=== PATIENT | male | born 1935 | race Caucasian/White ===

== ENCOUNTER 2019-01-17 11:26 | Inpatient (IN) | payer MEDICARE ==
--- NOTE | 2019-01-17 12:43 | ED ---
Chest Pain HPI - General Chief Complaint: Chest Pain Stated Complaint: Chest pain Time Seen by Provider: 01/17/19 11:26 Source: patient, family, EMS, RN notes reviewed Mode of arrival: EMS Limitations: no limitations - History of Present Illness Initial Comments: This 83-year-old male with a history of heart disease who is currently an Eliquis who presents from [facility] after presenting there with complaints of the onset of chest pain at around 4 AM this morning. He was treated and evaluated there found be hypomagnesemic pain is gone at this time he was sent for further evaluation by his owner consulting engineer. No complete fevers chills nausea vomiting sweats or other symptoms at this time. MD Complaint: chest pain - Related Data Home Medications Medication Instructions Recorded Confirmed Glimepiride [Amaryl] 2 mg PO BID 06/11/14 10/26/15 Levothyroxine Sodium [Synthroid] 50 mcg PO DAILY 06/11/14 10/26/15 Montelukast Sodium [Singulair] 10 mg PO DAILY 06/11/14 10/26/15 Loratadine [Claritin] 10 mg PO DAILY 10/14/14 10/26/15 Losartan [Cozaar] 50 mg PO DAILY 10/14/14 10/26/15 Aspirin [Adult Low Dose Aspirin EC] 81 mg PO DAILY 10/24/15 10/26/15 Atenolol [Tenormin] 50 mg PO BID 10/24/15 10/26/15 Warfarin Sodium 2.5 mg PO SUTUTHSA 10/24/15 10/26/15 Warfarin [Coumadin] 5 mg PO MOWEFR 10/24/15 10/26/15 Previous Rx's Medication Instructions Recorded Atorvastatin [Lipitor] 80 mg PO DAILY #60 tab 10/18/14 Clopidogrel [Plavix] 75 mg PO DAILY #90 tab 10/18/14 Nitroglycerin Sl Tabs [Nitrostat] 0.4 mg SUBLINGUAL Q5M PRN #25 tab 10/18/14 Atorvastatin [Lipitor] 80 mg PO HS #30 tab 10/27/15 Nitroglycerin Sl Tabs [Nitrostat] 0.4 mg SUBLINGUAL Q5M PRN #25 tab 10/27/15 metFORMIN HCL [Glucophage] 850 mg PO BID #0 10/27/15 Allergies Allergy/AdvReac Type Severity Reaction Status Date / Time cephalexin monohydrate Allergy Anaphylaxis Verified 01/17/19 11:36 [From Keflex] Review of Systems ROS Statement: Those systems with pertinent positive or pertinent negative responses have been documented in the HPI. ROS Other: All systems not noted in ROS Statement are negative. EKG Findings - EKG Results: EKG: interpreted by SIM (EKG rhythm rate is 60 QRS 178 daily since QTC 488/48 this is comparable to the one done at [facility].) Past Medical History Past Medical History: Heart Failure, Diabetes Mellitus, Deep Vein Thrombosis (DVT), Eye Disorder, Hearing Disorder / Deafness, Hyperlipidemia, Hypertension, Sleep Apnea/CPAP/BIPAP, Thyroid Disorder, Vascular Disorder Additional Past Medical History / Comment(s): CATARACT. NOT USING [place] FOR SLEEP APNEA. SHITAL EDEMA IN LEGS, ANKLES. History of Any Multi-Drug Resistant Organisms: None Reported Past Surgical History: Cholecystectomy, Heart Catheterization With Stent, Pacemaker, Tonsillectomy Additional Past Surgical History / Comment(s): STENT X2, 10-26-15 heart cath with stent to the circ, ortega Past Anesthesia/Blood Transfusion Reactions: No Reported Reaction Date of Last Stent Placement:: 10/2014 Type of Cardiac Device: Permanent Pacemaker Device Placement Date:: 05/2014 Past Psychological History: No Psychological Hx Reported Smoking Status: Former smoker Past Alcohol Use History: None Reported Past Drug Use History: None Reported - Past Family History Father Family Medical History: Cancer Mother Family Medical History: Chest Pain / Angina, Congestive Heart Failure (CHF), Diabetes Mellitus, Vascular Disorder Brother(s) Family Medical History: Chest Pain / Angina, Myocardial Infarction ([place]) General Exam - General Exam Comments Initial Comments: This is a well-developed well-nourished awake alert oriented 3 male Limitations: no limitations General appearance: alert, in no apparent distress Head exam: Present: atraumatic, normocephalic, normal inspection Eye exam: Present: normal appearance, PERRL, EOMI. Absent: scleral icterus, conjunctival injection, periorbital swelling ENT exam: Present: normal exam, mucous membranes moist Neck exam: Present: normal inspection. Absent: tenderness, meningismus, lymphadenopathy Respiratory exam: Present: normal lung sounds bilaterally. Absent: respiratory distress, wheezes, rales, rhonchi, stridor Cardiovascular Exam: Present: regular rate, normal rhythm, normal heart sounds. Absent: systolic murmur, diastolic murmur, rubs, gallop, clicks GI/Abdominal exam: Present: soft, normal bowel sounds. Absent: distended, tenderness, guarding, rebound, rigid Extremities exam: Present: normal inspection, full ROM, normal capillary refill. Absent: tenderness, pedal edema, joint swelling, calf tenderness Back exam: Present: normal inspection Neurological exam: Present: alert, oriented X3, CN II-XII intact Psychiatric exam: Present: normal affect, normal mood Skin exam: Present: warm, dry, intact, normal color. Absent: rash Course Vital Signs 01/17/19 11:36 Temperature 97.9 F Pulse Rate 61 Respiratory 18 Rate Blood Pressure 124/71 O2 Sat by Pulse 99 Oximetry Chest Pain MDM - MDM I did review the materials presented with EMS personnel and the patient upon arrival from [facility]. I did discuss the case with the patient family as well as with Dr. Chavez the patient will be admitted for cardiology consultation. He currently is pain-free Disposition Clinical Impression: Unstable angina pectoris, Chest pain Disposition: ADMITTED IP TO THIS HOSP Condition: Fair Referrals: Vlad Zuñiga MD [Primary Care Provider] - 1-2 days
[2019-01-17] MEDS ORDERED: NITROGLYCERIN SL TABS 0.4 MG TAB SUBLINGUAL PRN ×2 (12:47→16:23)
[2019-01-17] MEDS ORDERED: WARFARIN 2.5 MG TAB PO SCH (13:00)
--- NOTE | 2019-01-17 16:23 | P.HPIM ---
History of Present Illness H&P Date: 01/17/19 Chief Complaint: Chest pain History of presenting complaint: This is a very pleasant 83-year-old patient who follows with Dr. Vlad Zuñiga. Patient's drum tester is Dr. EARLINE Bragg chronic stable medical conditions include congestive heart failure, diabetes, hypertension, hyperlipidemia, hypothyroid. Patient's chronic lower extremity ulcers and the son does dressing changes every week including visiting nurse. Patient only uses a walker to get about. Lives with his . Around 4:00 this morning developed central chest pain. Unable to do find a tender pain. Pain lasted for a few hours. There is no dizziness no lightheadedness no nausea vomiting. No perspiration. Patient went down to [facility]. EKG there showed the patient atrial flutter with intraventricular block. Patient was transferred here for cardiology evaluation. Patient's son at the bedside. Currently patient is chest pain-free. Patient has known coronary artery disease with stents last one being 2015. Patient not the best of historians Review of systems: GEN.: Tired EYES: Decreased vision HEENT: Some hard of hearing NECK: None RESPIRATORY: None CARDIOVASCULAR: As above GASTROINTESTINAL: None GENITOURINARY: None MUSCULOSKELETAL: None LYMPHATICS: None HEMATOLOGICAL: None PSYCHIATRY: Forgetful NEUROLOGICAL: Does use a walker Past medical history: Congestive heart failure, diabetes, DVT in the remote past, decreased vision, hard of hearing, hyperlipidemia, hypertension, obstructive sleep apnea does not use CPAP, hypothyroid, bilateral lower extremity ulcers, aortic valve replacement Social history: This spoke about 16 years. Stopped in 1967. No alcohol. . Retired. Family history: Noncontributory to presentation Physical examination: VITAL SIGNS: 97.9, 61, 18, 124 x 71, 99% room air GENERAL: BMI 23.1 sitting up in bed, a bit tired appearing. EYES: Pupils equal. Conjunctiva normal. HEENT: External appearance of nose and ears normal, oral cavity grossly normal, decreased hearing. NECK: JVD not raised; masses not palpable. HEART: Heart sounds irregular; edema unable to assess. LUNGS: Respiratory rate normal; decreased breath sounds. ABDOMEN: Soft, nontender, liver spleen not palpable, no masses palpable. PSYCH: [Patient able also simple questions but forgetful l. NEUROLOGICAL: Cranial nerves grossly intact; no facial asymmetry, power and sensation grossly intact, decreased vision, decreased hearing. LYMPHATICS: No lymph nodes palpable in the axilla and neck INVESTIGATIONS, reviewed in the clinical context: Labs from [facility]: White count 6.3 hemoglobin 9.1 platelets 59 pro time 19.3 bun 30 creatinine 1 sodium 143 potassium 3.5 magnesium 1.1 troponin 0.04 Chest x-ray reported mild cardiomegaly and no pacemaker EKG tracing personally reviewed by me shows atrial flutter Assessment: -Unstable angina in a patient with known coronary artery disease -Coronary artery disease with prior stent -Chronic congestive heart failure EF not known -Diabetes mellitus type 2 on oral hypoglycemic -Hyperlipidemia -Essential hypertension -Hypothyroid -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 Cardiology been consulted. Home medications to be resumed. We'll replace admission. Currently no chest pain. No IV heparin. Care was discussed with the patient and family the bedside. Past Medical History Past Medical History: Heart Failure, Diabetes Mellitus, Deep Vein Thrombosis (DVT), Eye Disorder, Hearing Disorder / Deafness, Hyperlipidemia, Hypertension, Sleep Apnea/CPAP/BIPAP, Thyroid Disorder, Vascular Disorder Additional Past Medical History / Comment(s): CATARACT. NOT USING TX FOR SLEEP APNEA. SHITAL EDEMA IN LEGS, ANKLES. Aortic valve replacement History of Any Multi-Drug Resistant Organisms: None Reported Past Surgical History: Cholecystectomy, Heart Catheterization With Stent, Pacemaker, Tonsillectomy Additional Past Surgical History / Comment(s): STENT X2, --16 heart cath with stent to the circ, ortega Past Anesthesia/Blood Transfusion Reactions: No Reported Reaction Date of Last Stent Placement:: 10/2014 Type of Cardiac Device: Permanent Pacemaker Device Placement Date:: 05/2014 Past Psychological History: No Psychological Hx Reported Smoking Status: Former smoker Past Alcohol Use History: None Reported Additional Past Alcohol Use History / Comment(s): SMOKED FROM [id number] Past Drug Use History: None Reported - Past Family History Father Family Medical History: Cancer Mother Family Medical History: Chest Pain / Angina, Congestive Heart Failure (CHF), Diabetes Mellitus, Vascular Disorder Brother(s) Family Medical History: Chest Pain / Angina, Myocardial Infarction ([place]) Medications and Allergies Home Medications Medication Instructions Recorded Confirmed Type Losartan [Cozaar] 50 mg PO DAILY 10/14/14 01/17/19 History Nitroglycerin Sl Tabs [Nitrostat] 0.4 mg SUBLINGUAL Q5M PRN #25 tab 10/18/14 01/17/19 Rx Aspirin [Adult Low Dose Aspirin EC] 81 mg PO DAILY 10/24/15 01/17/19 History Atenolol [Tenormin] 50 mg PO BID 10/24/15 01/17/19 History Atorvastatin [Lipitor] 80 mg PO HS #30 tab 10/27/15 01/17/19 Rx metFORMIN HCL [Glucophage] 850 mg PO BID #0 10/27/15 01/17/19 Rx Apixaban [Eliquis] 5 mg PO BID 01/17/19 01/17/19 History Ascorbic Acid [Vitamin C] 500 mg PO DAILY 01/17/19 01/17/19 History Ferrous Sulfate [Iron (65 MG 325 mg PO DAILY 01/17/19 01/17/19 History Elemental)] Furosemide [Lasix] 40 mg PO BID 01/17/19 01/17/19 History Glimepiride [Amaryl] 2 mg PO DAILY 01/17/19 01/17/19 History Levothyroxine Sodium [Synthroid] 75 mcg PO DAILY 01/17/19 01/17/19 History amLODIPine [Norvasc] 5 mg PO DAILY 01/17/19 01/17/19 History Allergies Allergy/AdvReac Type Severity Reaction Status Date / Time cephalexin monohydrate Allergy Anaphylaxis Verified 01/17/19 13:05 [From Keflex] Physical Exam Vitals: Vital Signs Temp Pulse Pulse Resp BP BP Pulse Ox 01/17/19 13:45 97.6 F 62 16 138/60 100 01/17/19 11:36 97.9 F 61 18 124/71 99 Intake and Output 01/17/19 01/17/19 01/17/19 06:59 14:59 22:59 Other: Weight 73.028 kg Results Labs: Abnormal Lab Results - Last 24 Hours (Table) 01/17/19 Range/Units 14:49 Troponin I 0.043 H* (0.000-0.034) ng/mL Thrombosis Risk Factor Assmnt - Choose All That Apply Any of the Below Risk Factors Present?: Yes Each Risk Factor Represents 3 Points: Age 75 years or older, History of DVT/PE Thrombosis Risk Factor Assessment Total Risk Factor Score: 6 Thrombosis Risk Factor Assessment Level: High Risk
[2019-01-17 17:14] LABS: Glucose,Whole Blood 90 mg/dL (75-99)
[2019-01-17] MEDS: NITROGLYCERIN OINT 1 INCH/GM PACKET TOPICAL SCH (17:18)
[2019-01-17] MEDS: INSULIN ASPART (NovoLOG) 100 UNIT/ML VIAL SQ SCH ×2 (17:18→22:18)
[2019-01-17] MEDS: SODIUM CHLORIDE 0.9% 1,000 ML IV SCH (17:19)
[2019-01-17] MEDS: ATENOLOL 50 MG TAB PO SCH (20:57)
[2019-01-17] MEDS: GLIMEPIRIDE 2 MG TAB PO SCH (20:57)
[2019-01-17] MEDS: FUROSEMIDE 40 MG TAB PO SCH (20:57)
[2019-01-17] MEDS: ATORVASTATIN 80 MG TAB PO SCH (20:57)
[2019-01-17] MEDS: MAGNESIUM OXIDE 400 MG TAB PO SCH (20:57)
[2019-01-17] MEDS: APIXABAN 5 MG TAB PO SCH (20:57)
[2019-01-17] MEDS ORDERED: APIXABAN 5 MG TAB PO SCH (21:00)
[2019-01-17 21:28] LABS: Glucose,Whole Blood 171 mg/dL (75-99)
[2019-01-17] MEDS: metFORMIN 850 MG TAB PO SCH (22:18)
[2019-01-18] MEDS: NITROGLYCERIN OINT 1 INCH/GM PACKET TOPICAL SCH ×2 (00:47→05:22)
[2019-01-18] MEDS: LEVOTHYROXINE 75 MCG TAB PO SCH (05:22)
[2019-01-18 06:15] LABS: African American GFR (CKD) >90 (>60 ml/min/1.73 sqM); Anion Gap 4 mmol/L; Blood Urea Nitrogen 35 mg/dL (9-20); Calcium 8.5 mg/dL (8.4-10.2); Carbon Dioxide 35 mmol/L (22-30); Chloride 101 mmol/L (98-107); Cholesterol 94 mg/dL (<200); Glucose 54 mg/dL (74-99); HDL Cholesterol 46 mg/dL (40-60); LDL Cholesterol,Calculated 35 mg/dL (0-99); Potassium 3.3 mmol/L (3.5-5.1); Sodium 140 mmol/L (137-145); Triglycerides 64 mg/dL (<150)
[2019-01-18 06:23] LABS: Anisocytosis Slight; Basophils % (A) 0 %; Eosinophils # (A) 0.3 k/uL (0-0.7); Eosinophils % (A) 4 %; HCT 29.1 % (39.0-53.0); HGB 9.3 gm/dL (13.0-17.5); Hypochromasia Slight; Lymphocytes # (A) 0.9 k/uL (1.0-4.8); Lymphocytes % (A) 12 %; MCH 29.6 pg (25.0-35.0); MCHC 31.9 g/dL (31.0-37.0); Mean Platelet Volume 8.2; Monocytes # (A) 0.3 k/uL (0-1.0); Monocytes % (A) 4 %; Neutrophils # (A) 6.5 k/uL (1.3-7.7); Neutrophils % (A) 80 %; RBC 3.13 m/uL (4.30-5.90); RDW 16.2 % (11.5-15.5); WBC 8.2 k/uL (3.8-10.6)
[2019-01-18] MEDS ORDERED: LEVOTHYROXINE 50 MCG TAB PO SCH (06:30)
[2019-01-18 06:34] LABS: Glucose,Whole Blood 71 mg/dL (75-99)
[2019-01-18] MEDS: INSULIN ASPART (NovoLOG) 100 UNIT/ML VIAL SQ SCH ×4 (06:45→21:10)
[2019-01-18 06:51] LABS: Platelet Count 66 k/uL (150-450)
[2019-01-18] MEDS ORDERED: ASPIRIN 325 MG TAB PO SCH (09:00)
--- NOTE | 2019-01-18 09:09 | P.CRDCN ---
History of Present Illness Consult date: 01/18/19 Requesting physician: Zac Chavez Consult reason: chest pain Chief complaint: Chest pain History of present illness: This is an 83-year-old gentleman who follows with Dr. Aditya Bragg in the office. He has a known history of diabetes, hypertension, hyperlipidemia, sleep apnea, chronic atrial fibrillation for which the patient is on anticoagulation, hypothyroidism coronary artery disease with history of prior PCI to the RCA, most recently in 2016 patient underwent angioplasty and stenting of the circumflex artery. She presented to the hospital with symptoms of chest discomfort, according to the patient lasted several hours, he initially presented to [facility], and was transferred here for further cardiac care. It was noted to [facility] that his magnesium level was low, he was in atrial fibrillation. White blood cell count 6.3, hemoglobin 9.1, platelet count 59, sodium 143, potassium is 3.5, magnesium 1.1 troponin 0.04 chest x-ray showed mild cardiomegaly with possible small right-sided pleural effusion. EKG shows paced rhythm with underlying atrial fibrillation. I pressure here 112/60 with a heart rate in the 60s, 97% on room air. White blood cell count 8.2 , hgb9.3, plt 66, Na 140, Potassium 3.3, BUN 35, creat 0.88, Mag 1.8, Trop .043, .044. At the time of my examination this morning, patient is currently chest pain-free. Past Medical History Past Medical History: Heart Failure, Diabetes Mellitus, Deep Vein Thrombosis (DVT), Eye Disorder, Hearing Disorder / Deafness, Hyperlipidemia, Hypertension, Sleep Apnea/CPAP/BIPAP, Thyroid Disorder, Vascular Disorder Additional Past Medical History / Comment(s): CATARACT. NOT USING [place] FOR SLEEP APNEA. SHITAL EDEMA IN LEGS, ANKLES. Aortic valve replacement History of Any Multi-Drug Resistant Organisms: None Reported Past Surgical History: Cholecystectomy, Heart Catheterization With Stent, Pacemaker, Tonsillectomy Additional Past Surgical History / Comment(s): STENT X2, 10-26-15 heart cath with stent to the circ, ortega Past Anesthesia/Blood Transfusion Reactions: No Reported Reaction Date of Last Stent Placement:: 10/2014 Type of Cardiac Device: Permanent Pacemaker Device Placement Date:: 05/2014 Past Psychological History: No Psychological Hx Reported Smoking Status: Former smoker Past Alcohol Use History: None Reported Additional Past Alcohol Use History / Comment(s): SMOKED FROM [id number] Past Drug Use History: None Reported - Past Family History Father Family Medical History: Cancer Mother Family Medical History: Chest Pain / Angina, Congestive Heart Failure (CHF), Diabetes Mellitus, Vascular Disorder Brother(s) Family Medical History: Chest Pain / Angina, Myocardial Infarction ([place]) Medications and Allergies Home Medications Medication Instructions Recorded Confirmed Type Losartan [Cozaar] 50 mg PO DAILY 10/14/14 01/17/19 History Nitroglycerin Sl Tabs [Nitrostat] 0.4 mg SUBLINGUAL Q5M PRN #25 tab 10/18/14 01/17/19 Rx Aspirin [Adult Low Dose Aspirin EC] 81 mg PO DAILY 10/24/15 01/17/19 History Atenolol [Tenormin] 50 mg PO BID 10/24/15 01/17/19 History Atorvastatin [Lipitor] 80 mg PO HS #30 tab 10/27/15 01/17/19 Rx metFORMIN HCL [Glucophage] 850 mg PO BID #0 10/27/15 01/17/19 Rx Apixaban [Eliquis] 5 mg PO BID 01/17/19 01/17/19 History Ascorbic Acid [Vitamin C] 500 mg PO DAILY 01/17/19 01/17/19 History Ferrous Sulfate [Iron (65 MG 325 mg PO DAILY 01/17/19 01/17/19 History Elemental)] Furosemide [Lasix] 40 mg PO BID 01/17/19 01/17/19 History Glimepiride [Amaryl] 2 mg PO DAILY 01/17/19 01/17/19 History Levothyroxine Sodium [Synthroid] 75 mcg PO DAILY 01/17/19 01/17/19 History amLODIPine [Norvasc] 5 mg PO DAILY 01/17/19 01/17/19 History Allergies Allergy/AdvReac Type Severity Reaction Status Date / Time cephalexin monohydrate Allergy Anaphylaxis Verified 01/17/19 13:05 [From Keflex] Physical Exam Vitals: Vital Signs Temp Pulse Pulse Resp BP BP Pulse Ox 01/18/19 07:33 97.6 F 60 16 112/58 97 01/18/19 04:00 97.8 F 63 16 117/61 98 01/18/19 00:00 97.9 F 67 18 100/57 97 01/17/19 20:00 97.8 F 60 16 113/57 98 01/17/19 16:00 97.8 F 68 16 128/62 100 01/17/19 13:45 97.6 F 62 16 138/60 100 01/17/19 11:36 97.9 F 61 18 124/71 99 Intake and Output 01/17/19 01/18/19 01/18/19 22:59 06:59 14:59 Intake Total 470 Output Total 500 Balance -30 Intake: IV 10 Invasive Line 1 10 Oral 460 Output: Urine 500 Other: Voiding Method Toilet Diaper # Voids 4 Weight 70.3 kg PHYSICAL EXAMINATION: GENERAL: 83-year-old gentleman in no acute distress at the time of my examination HEENT: Head is atraumatic, normocephalic. Pupils equal, round. Sclera anicteric. Conjunctiva are clear. Mucous membranes of the mouth are moist. Neck is supple. There is no elevated jugular venous pressure. No carotid bruit is heard. HEART EXAMINATION: S1 and S2 irregularly irregular a systolic murmur is heard CHEST EXAMINATION: Lungs reveal diminished air entry to bilateral bases. ABDOMEN: Soft, nontender. Bowel sounds are heard. No organomegaly noted. EXTREMITIES: 2+ peripheral pulses with no evidence of peripheral edema and no calf tenderness noted. NEUROLOGIC patient is awake, alert and oriented 3 . . Results 01/18/19 05:29 01/18/19 05:29 Cardiac Enzymes 01/17/19 01/17/19 Range/Units 14:49 20:35 Troponin I 0.043 H* 0.044 H* (0.000-0.034) ng/mL Lipids 01/18/19 Range/Units 05:29 Triglycerides 64 (<150) mg/dL Cholesterol 94 (<200) mg/dL HDL Cholesterol 46 (40-60) mg/dL CBC 01/18/19 Range/Units 05:29 WBC 8.2 (3.8-10.6) k/uL RBC 3.13 L (4.30-5.90) m/uL Hgb 9.3 L (13.0-17.5) gm/dL Hct 29.1 L (39.0-53.0) % Plt Count 66 L (150-450) k/uL Comprehensive Metabolic Panel 01/18/19 Range/Units 05:29 Sodium 140 (137-145) mmol/L Potassium 3.3 L (3.5-5.1) mmol/L Chloride 101 (98-107) mmol/L Carbon Dioxide 35 H (22-30) mmol/L BUN 35 H (9-20) mg/dL Creatinine 0.88 (0.66-1.25) mg/dL Glucose 54 L (74-99) mg/dL Calcium 8.5 (8.4-10.2) mg/dL Current Medications Generic Name Dose Route Start Last Admin Trade Name Freq PRN Reason Stop Dose Admin Amlodipine Besylate 5 mg 01/18/19 09:00 Norvasc PO DAILY [facility] Apixaban 5 mg 01/17/19 21:00 01/17/19 20:57 Eliquis PO 5 mg BID [facility] Administration Ascorbic Acid 500 mg 01/18/19 09:00 Vitamin C PO DAILY [facility] Aspirin 81 mg 01/18/19 09:00 Aspirin PO DAILY [facility] Atenolol 50 mg 01/17/19 21:00 01/17/19 20:57 Tenormin PO 50 mg BID [facility] Administration Atorvastatin Calcium 80 mg 01/17/19 21:00 01/17/19 20:57 Lipitor PO 80 mg HS [facility] Administration Ferrous Sulfate 325 mg 01/18/19 09:00 Feosol PO DAILY [facility] Furosemide 40 mg 01/17/19 21:00 01/17/19 20:57 Lasix PO 40 mg BID [facility] Administration Glimepiride 2 mg 01/17/19 21:00 01/17/19 20:57 Amaryl PO 2 mg BID [facility] Administration Sodium Chloride 1,000 mls @ 20 mls/hr 01/17/19 13:00 01/17/19 17:19 Saline 0.9% IV Not Given .Q24H [facility] Insulin Aspart 0 unit 01/17/19 17:30 01/18/19 06:45 Novolog SQ Not Given ACHS [facility] Protocol Levothyroxine Sodium 75 mcg 01/18/19 06:30 01/18/19 05:22 Synthroid PO 75 mcg DAILY@0630 [facility] Administration Loratadine 10 mg 01/18/19 09:00 Claritin PO DAILY [facility] Losartan Potassium 50 mg 01/18/19 09:00 Cozaar PO DAILY [facility] Magnesium Oxide 400 mg 01/17/19 21:00 01/17/19 20:57 Mag-Ox PO 400 mg BID [facility] Administration Metformin HCl 850 mg 01/17/19 21:00 01/17/19 22:18 Glucophage PO 850 mg BID [facility] Administration Montelukast Sodium 10 mg 01/18/19 09:00 Singulair PO DAILY [facility] Nitroglycerin 1 inch 01/17/19 18:00 01/18/19 05:22 Nitro-Bid Oint TOPICAL 1 inch Q6HR [facility] Administration Nitroglycerin 0.4 mg 01/17/19 12:47 Nitrostat SUBLINGUAL Q5M PRN Chest Pain Intake and Output 01/17/19 01/18/19 01/18/19 22:59 06:59 14:59 Intake Total 470 Output Total 500 Balance -30 Intake: IV 10 Invasive Line 1 10 Oral 460 Output: Urine 500 Other: Voiding Method Toilet Diaper # Voids 4 Weight 70.3 kg 01/18/19 05:29 01/18/19 05:29 EKG Interpretations (text) EKG shows paced rhythm with underlying atrial fibrillation Assessment and Plan Plan: Assessment and plan #1 chest pain, atypical for acute coronary syndrome, cannot completely rule out acute coronary syndrome. Troponins 0.043, 0.044. EKG shows a paced rhythm with underlying atrial fibrillation. #2 hypomagnesemia #3 chronic A. fib, on anticoagulation in the form of Eliquis #4 diabetes #5 hypertension #6 hyperlipidemia #7 sleep apnea #8sick sinus syndrome status post permanent pacemaker #9 coronary artery disease with prior PCI #10-hypokalemia 11 Anemia and low platelets Plan We will maximize the patient's medication, continue with current maximuml therapy. Magnesium has been replaced, we will also replace the patient's potassium. Recommend workup for anemia. We will obtain an echocardiogram with Doppler study. Discontinue Nitropaste and add a small dose of Imdur to the patient's medication regime. We will also continue the losartan, decrease Lasix to 20 mg by mouth twice a day. Further recommendations to follow. DNP note has been reviewed, I agree with a documented findings and plan of care. Patient was seen and examined.
[2019-01-18] MEDS: ATENOLOL 50 MG TAB PO SCH ×2 (09:32→21:01)
[2019-01-18] MEDS: LOSARTAN 50 MG TAB PO SCH (09:32)
[2019-01-18] MEDS: LORATADINE 10 MG TAB PO SCH (09:32)
[2019-01-18] MEDS: POTASSIUM CHLORIDE ER 20 MEQ TAB.ER PO SCH ×3 (09:32→13:48)
[2019-01-18] MEDS: ASPIRIN 81 MG PO SCH (09:32)
[2019-01-18] MEDS: MONTELUKAST 10 MG TAB PO SCH (09:32)
[2019-01-18] MEDS: MAGNESIUM OXIDE 400 MG TAB PO SCH ×2 (09:32→21:01)
[2019-01-18] MEDS: ASCORBIC ACID 500 MG TAB PO SCH (09:32)
[2019-01-18] MEDS: amLODIPine 5 MG TAB PO SCH (09:32)
[2019-01-18] MEDS: GLIMEPIRIDE 2 MG TAB PO SCH ×2 (09:32→21:01)
[2019-01-18] MEDS: metFORMIN 850 MG TAB PO SCH ×2 (09:32→21:00)
[2019-01-18] MEDS: FERROUS SULFATE 325 MG TAB PO SCH (09:32)
[2019-01-18] MEDS: APIXABAN 5 MG TAB PO SCH ×2 (09:32→21:01)
[2019-01-18] MEDS: FUROSEMIDE 40 MG TAB PO SCH (09:47)
[2019-01-18] MEDS ORDERED: WARFARIN 5 MG TAB PO SCH (12:49)
[2019-01-18] MEDS: SODIUM CHLORIDE 0.9% 1,000 ML IV SCH (13:40)
--- NOTE | 2019-01-18 13:59 | ECHOF ---
Referral Reason:chest pain MEASUREMENTS -------- HEIGHT: 180.3 cm WEIGHT: 69.8 kg BP: IVSd: 1.4 cm (0.6 - 1.1) LVIDd: 4.2 cm (3.9 - 5.3) LVPWd: 1.2 cm (0.6 - 1.1) IVSs: 1.9 cm LVIDs: 2.1 cm LVPWs: 1.7 cm LAESV Index (A-L): 31.40 ml/m Ao Diam: 2.6 cm (2.0 - 3.7) LA Diam: 3.1 cm (2.7 - 3.8) AV Cusp: 1.3 cm (1.5 - 2.6) EPSS: 1.0 cm MV E Juan Jose: 1.21 m/s MV DecT: 237 ms MV A Juan Jose: 0.37 m/s MV E/A Ratio: 3.26 AV maxP.49 mmHg AV meanP.00 mmHg RAP: 5.00 mmHg RVSP: 36.55 mmHg MV EF SLOPE: 69.44 mm/s (70 - 150) MV EXCURSION: 17.70 mm (> 18.000) FINDINGS -------- Pacerwire seen in RV and RA. This was a technically difficult study with suboptimal views. Post TAVR procedure The left ventricular size is normal. There is mild concentric left ventricular hypertrophy. Overa ll left ventricular systolic function is mild-moderately impaired with, an EF between 40 - 45 %. Ba leonard inferoseptal LV wall motion is hypokinetic. Apical inferior LV wall motion is hypokinetic. Basal inferolateral hypokinesis. The right ventricle is normal in size. LA is midly dilated 29-33ml/m2. The right atrium was not well visualized. Lumason used Interatrial and interventricular septum intact. Peak/mean gradient across the Aortic Valve is 14.49mmHg / 10.00mmHg. Normally functioning bioprosth etic valve. The mitral valve leaflets are mildly thickened. Mild mitral annular calcification present. Mild m itral regurgitation is present. Moderate tricuspid regurgitation present. There is mild pulmonary hypertension. The right ventric ular systolic pressure, as measured by Doppler, is 36.55mmHg. There is no pulmonic regurgitation present. The aortic root size is normal. IVC Not well visulized. There is no pericardial effusion. CONCLUSIONS -------- 1. Pacerwire seen in RV and RA. 2. This was a technically difficult study with suboptimal views. 3. Post TAVR procedure 4. The left ventricular size is normal. 5. There is mild concentric left ventricular hypertrophy. 6. Overall left ventricular systolic function is mild-moderately impaired with, an EF between 40 - 45 %. 7. Basal inferoseptal LV wall motion is hypokinetic. 8. Apical inferior LV wall motion is hypokinetic. 9. Basal inferolateral hypokinesis. 10. The right ventricle is normal in size. 11. LA is midly dilated 29-33ml/m2. 12. The right atrium was not well visualized. 13. Lumason used 14. Interatrial and interventricular septum intact. 15. Peak/mean gradient across the Aortic Valve is 14.49mmHg / 10.00mmHg. 16. Normally functioning bioprosthetic valve. 17. The mitral valve leaflets are mildly thickened. 18. Mild mitral annular calcification present. 19. Mild mitral regurgitation is present. 20. Moderate tricuspid regurgitation present. 21. There is mild pulmonary hypertension. 22. The right ventricular systolic pressure, as measured by Doppler, is 36.55mmHg. 23. There is no pulmonic regurgitation present. 24. The aortic root size is normal. 25. IVC Not well visulized. 26. There is no pericardial effusion. [employer]: Marylu Cantu RDCS
[2019-01-18 14:48] VITALS: BMI 22.2
[2019-01-18 16:09] LABS: Iron Saturation 9.85 (15.00-50.00)
[2019-01-18 17:47] LABS: Glucose,Whole Blood 114 mg/dL (75-99)
[2019-01-18 20:53] LABS: Glucose,Whole Blood 187 mg/dL (75-99)
[2019-01-18] MEDS: ATORVASTATIN 80 MG TAB PO SCH (21:01)
[2019-01-18] MEDS: FUROSEMIDE 20 MG TAB PO SCH (21:01)
--- NOTE | 2019-01-18 22:41 | P.PN ---
Progress Note - Text Progress Note Date: 01/18/19 Chief Complaint: Chest pain Interval history: This is a very pleasant 83-year-old patient who follows with Dr. Vlad Zuñiga. Patient's actuarial technician is Dr. EARLINE Bragg chronic stable medical conditions include congestive heart failure, diabetes, hypertension, hyperlipidemia, hypothyroid. Patient's chronic lower extremity ulcers and the son does dressing changes every week including visiting nurse. Patient only uses a walker to get about. Lives with his . Around 4:00 this morning developed central chest pain. Unable to do find a tender pain. Pain lasted for a few hours. There is no dizziness no lightheadedness no nausea vomiting. No perspiration. Patient went down to [facility]. EKG there showed the patient atrial flutter with intraventricular block. Patient was transferred here for cardiology evaluation. Patient's son at the bedside. Currently patient is chest pain-free. Patient has known coronary artery disease with stents last one being 2015. Patient not the best of historians Today-feeling better. Sitting up. Medications were adjusted by cardiology. Review of systems: Was done for constitutional, cardiovascular, GI, pulmonary. relevant finding as above Active Medications Amlodipine Besylate (Norvasc) 5 mg PO DAILY [facility] Last Admin: 01/18/19 09:32 Dose: 5 mg Documented by: Apixaban (Eliquis) 5 mg PO BID [facility] Last Admin: 01/18/19 21:01 Dose: 5 mg Documented by: Ascorbic Acid (Vitamin C) 500 mg PO DAILY [facility] Last Admin: 01/18/19 09:32 Dose: 500 mg Documented by: Aspirin (Aspirin) 81 mg PO DAILY [facility] Last Admin: 01/18/19 09:32 Dose: 81 mg Documented by: Atenolol (Tenormin) 50 mg PO BID [facility] Last Admin: 01/18/19 21:01 Dose: 50 mg Documented by: Atorvastatin Calcium (Lipitor) 80 mg PO HS [facility] Last Admin: 01/18/19 21:01 Dose: 80 mg Documented by: Ferrous Sulfate (Feosol) 325 mg PO DAILY [facility] Last Admin: 01/18/19 09:32 Dose: 325 mg Documented by: Furosemide (Lasix) 20 mg PO BID [facility] Last Admin: 01/18/19 21:01 Dose: 20 mg Documented by: Glimepiride (Amaryl) 2 mg PO BID [facility] Last Admin: 01/18/19 21:01 Dose: 2 mg Documented by: Sodium Chloride (Saline 0.9%) 1,000 mls @ 20 mls/hr IV .Q24H [facility] Last Admin: 01/18/19 13:40 Dose: Not Given Documented by: Insulin Aspart (Novolog) 0 unit SQ ACHS [facility]; Protocol Last Admin: 01/18/19 21:10 Dose: Not Given Documented by: Isosorbide Mononitrate (Imdur) 30 mg PO DAILY [facility] Levothyroxine Sodium (Synthroid) 75 mcg PO DAILY@0630 [facility] Last Admin: 01/18/19 05:22 Dose: 75 mcg Documented by: Loratadine (Claritin) 10 mg PO DAILY [facility] Last Admin: 01/18/19 09:32 Dose: 10 mg Documented by: Losartan Potassium (Cozaar) 50 mg PO DAILY [facility] Last Admin: 01/18/19 09:32 Dose: 50 mg Documented by: Magnesium Oxide (Mag-Ox) 400 mg PO BID [facility] Last Admin: 01/18/19 21:01 Dose: 400 mg Documented by: Metformin HCl (Glucophage) 850 mg PO BID [facility] Last Admin: 01/18/19 21:00 Dose: 850 mg Documented by: Montelukast Sodium (Singulair) 10 mg PO DAILY [facility] Last Admin: 01/18/19 09:32 Dose: 10 mg Documented by: Nitroglycerin (Nitrostat) 0.4 mg SUBLINGUAL Q5M PRN PRN Reason: Chest Pain Physical examination: VITAL SIGNS: 97.6, 60, 16, 112/58, 97% room air GENERAL: Laying in bed, not in distress. EYES: Pupils equal. Conjunctiva normal. HEENT: External appearance of nose and ears normal, oral cavity grossly normal, decreased hearing. NECK: JVD not raised; masses not palpable. HEART: Heart sounds irregular; edema unable to assess. LUNGS: Respiratory rate normal; decreased breath sounds. ABDOMEN: Soft, nontender, liver spleen not palpable, no masses palpable. PSYCH: [Patient able also simple questions but forgetful l. INVESTIGATIONS, reviewed in the clinical context: White count 8.2 hemoglobin 9.3 platelets 66 potassium 3.3 creatinine 0.88 glucose 54 2-D echo shows EF of 40-45% and wall motion abnormalities, evidence of T aVR Labs from [facility]: White count 6.3 hemoglobin 9.1 platelets 59 pro time 19.3 bun 30 creatinine 1 sodium 143 potassium 3.5 magnesium 1.1 troponin 0.04 Chest x-ray reported mild cardiomegaly and no pacemaker EKG tracing personally reviewed by me shows atrial flutter Assessment: -Unstable angina in a patient with known coronary artery disease -Coronary artery disease with prior stent -Chronic congestive heart failure from systolic dysfunction EF 40-45% from underlying coronary artery disease -Diabetes mellitus type 2 on oral hypoglycemic, uncontrolled with hypoglycemia -Hyperlipidemia -Essential hypertension -Hypothyroid -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 Medications were adjusted. Prognosis guarded follow.
[2019-01-19 06:02] LABS: Glucose,Whole Blood 84 mg/dL (75-99)
[2019-01-19] MEDS: INSULIN ASPART (NovoLOG) 100 UNIT/ML VIAL SQ SCH ×4 (06:06→21:13)
[2019-01-19] MEDS: LEVOTHYROXINE 75 MCG TAB PO SCH (06:09)
[2019-01-19 06:52] LABS: HCT 32.1 % (39.0-53.0); HGB 10.1 gm/dL (13.0-17.5); Hypochromasia Marked; MCH 29.8 pg (25.0-35.0); MCHC 31.4 g/dL (31.0-37.0); Mean Platelet Volume 7.7; RBC 3.38 m/uL (4.30-5.90); RDW 15.6 % (11.5-15.5); WBC 6.1 k/uL (3.8-10.6)
[2019-01-19 06:57] LABS: Platelet Count 64 k/uL (150-450)
[2019-01-19 07:09] LABS: African American GFR (CKD) >90 (>60 ml/min/1.73 sqM); Anion Gap 6 mmol/L; Blood Urea Nitrogen 35 mg/dL (9-20); Calcium 8.7 mg/dL (8.4-10.2); Carbon Dioxide 33 mmol/L (22-30); Chloride 104 mmol/L (98-107); Glucose 58 mg/dL (74-99); Potassium 3.7 mmol/L (3.5-5.1); Sodium 143 mmol/L (137-145)
[2019-01-19] MEDS: LORATADINE 10 MG TAB PO SCH (07:30)
[2019-01-19] MEDS: GLIMEPIRIDE 2 MG TAB PO SCH ×2 (07:30→21:11)
[2019-01-19] MEDS: LOSARTAN 50 MG TAB PO SCH (07:30)
[2019-01-19] MEDS: amLODIPine 5 MG TAB PO SCH (07:30)
[2019-01-19] MEDS: ASPIRIN 81 MG PO SCH (07:30)
[2019-01-19] MEDS: FERROUS SULFATE 325 MG TAB PO SCH (07:30)
[2019-01-19] MEDS: ISOSORBIDE MONONITRATE ER 30 MG TAB.ER.24H PO SCH (07:30)
[2019-01-19] MEDS: FUROSEMIDE 20 MG TAB PO SCH ×2 (07:30→21:11)
[2019-01-19] MEDS: MONTELUKAST 10 MG TAB PO SCH (07:30)
[2019-01-19] MEDS: MAGNESIUM OXIDE 400 MG TAB PO SCH ×2 (07:30→21:11)
[2019-01-19] MEDS: APIXABAN 5 MG TAB PO SCH ×2 (07:30→21:11)
[2019-01-19] MEDS: ASCORBIC ACID 500 MG TAB PO SCH (07:30)
[2019-01-19] MEDS: ATENOLOL 50 MG TAB PO SCH (07:30)
[2019-01-19] MEDS: metFORMIN 850 MG TAB PO SCH ×2 (07:31→21:15)
[2019-01-19 11:20] LABS: Glucose,Whole Blood 165 mg/dL (75-99)
[2019-01-19] MEDS: SODIUM CHLORIDE 0.9% 1,000 ML IV SCH (11:36)
[2019-01-19 12:36] LABS: Hemoglobin A1C 5.8 % (4.0-6.0)
--- NOTE | 2019-01-19 13:15 | P.PN ---
Subjective Progress Note Date: 01/19/19 This is an 83-year-old gentleman who follows with Dr. Aditya Bragg in the office. He has a known history of diabetes, hypertension, hyperlipidemia, sleep apnea, chronic atrial fibrillation for which the patient is on anticoagulation, hypothyroidism coronary artery disease with history of prior PCI to the RCA, most recently in 2016 patient underwent angioplasty and stenting of the circumflex artery. She presented to the hospital with symptoms of chest discomfort, according to the patient lasted several hours, he initially presented to [facility], and was transferred here for further cardiac care. It was noted to [facility] that his magnesium level was low, he was in atrial fibrillation. White blood cell count 6.3, hemoglobin 9.1, platelet count 59, sodium 143, potassium is 3.5, magnesium 1.1 troponin 0.04 chest x-ray showed mild cardiomegaly with possible small right-sided pleural effusion. EKG shows paced rhythm with underlying atrial fibrillation. I pressure here 112/60 with a heart rate in the 60s, 97% on room air. White blood cell count 8.2 , hgb9.3, plt 66, Na 140, Potassium 3.3, BUN 35, creat 0.88, Mag 1.8, Trop .043, .044. At the time of my examination this morning, patient is currently chest pain-free. 01/19/2019 Patient seen and examined this morning, denied any further episodes of chest discomfort, sitting up in the chair at bedside at the time of my examination. and son are present. Echocardiogram with Doppler study was performed which revealed an ejection fraction of 40-45%, basal inferior septal wall motion hypokinesia as well as apical inferior hypokinesia noted. Blood pressure 84/50 with a heart rate in the 50s. We will discontinue the Norvasc and decrease the Cozaar to 25 mg daily. From our perspective he may be able to be discharged once cleared by primary. Objective - Vital Signs Vital signs: Vital Signs Temp 97.6 F 01/19/19 11:30 Pulse 59 L 01/19/19 11:31 Resp 17 01/19/19 11:31 BP 84/55 01/19/19 11:30 Pulse Ox 96 01/19/19 11:30 Intake & Output 01/18/19 01/19/19 01/19/19 18:59 06:59 18:59 Intake Total 950 840 Output Total 700 Balance 250 840 Weight 70.3 kg 71.4 kg Intake: IV 30 10 Invasive Line 1 30 10 Oral 920 830 Output: Urine 700 Other: Voiding Method Toilet Toilet Toilet Diaper Diaper Diaper # Voids 0 1 1 # Bowel Movements 1 - Exam PHYSICAL EXAMINATION: GENERAL: 83-year-old gentleman in no acute distress at the time of my examination HEENT: Head is atraumatic, normocephalic. Pupils equal, round. Sclera anicteric. Conjunctiva are clear. Mucous membranes of the mouth are moist. Neck is supple. There is no elevated jugular venous pressure. No carotid bruit is heard. HEART EXAMINATION: S1 and S2 irregularly irregular a systolic murmur is heard CHEST EXAMINATION: Lungs reveal diminished air entry to bilateral bases. ABDOMEN: Soft, nontender. Bowel sounds are heard. No organomegaly noted. EXTREMITIES: 2+ peripheral pulses with no evidence of peripheral edema and no calf tenderness noted. NEUROLOGIC patient is awake, alert and oriented 3 . - Labs CBC & Chem 7: 01/19/19 06:33 01/19/19 06:33 Labs: Abnormal Lab Results - Last 24 Hours (Table) 01/18/19 01/18/19 01/18/19 Range/Units 05:29 17:44 20:50 RBC (4.30-5.90) m/uL Hgb (13.0-17.5) gm/dL Hct (39.0-53.0) % RDW (11.5-15.5) % Plt Count (150-450) k/uL Carbon Dioxide (22-30) mmol/L BUN (9-20) mg/dL Glucose (74-99) mg/dL POC Glucose (mg/dL) 114 H 187 H (75-99) mg/dL Iron 26 L (65-175) ug/dL Iron Saturation 9.85 L (15.00-50.00) 01/19/19 01/19/19 01/19/19 Range/Units 06:33 06:33 11:19 RBC 3.38 L (4.30-5.90) m/uL Hgb 10.1 L (13.0-17.5) gm/dL Hct 32.1 L (39.0-53.0) % RDW 15.6 H (11.5-15.5) % Plt Count 64 L (150-450) k/uL Carbon Dioxide 33 H (22-30) mmol/L BUN 35 H (9-20) mg/dL Glucose 58 L (74-99) mg/dL POC Glucose (mg/dL) 165 H (75-99) mg/dL Iron (65-175) ug/dL Iron Saturation (15.00-50.00) Assessment and Plan Plan: Assessment and plan #1 chest pain, atypical for acute coronary syndrome, cannot completely rule out acute coronary syndrome. Troponins 0.043, 0.044. EKG shows a paced rhythm with underlying atrial fibrillation. #2 hypomagnesemia #3 chronic A. fib, on anticoagulation in the form of Eliquis #4 diabetes #5 hypertension #6 hyperlipidemia #7 sleep apnea #8sick sinus syndrome status post permanent pacemaker #9 coronary artery disease with prior PCI #10-hypokalemia 11 Anemia and low platelets Plan From cardiology's perspective, we will discontinue the Norvasc and decrease her dose of Cozaar because of hypotension. Patient may be able to be discharged home from our perspective to follow-up with Dr. Aditya Bragg in the office post discharge. DNP note has been reviewed, I agree with a documented findings and plan of care. Patient was seen and examined.
[2019-01-19 16:36] LABS: Glucose,Whole Blood 156 mg/dL (75-99)
[2019-01-19 20:16] VITALS: RESP 18
[2019-01-19 20:56] LABS: Glucose,Whole Blood 109 mg/dL (75-99)
[2019-01-19] MEDS: ATORVASTATIN 80 MG TAB PO SCH (21:11)
--- NOTE | 2019-01-19 23:10 | P.PN ---
Progress Note - Text Progress Note Date: 01/19/19 Chief Complaint: Chest pain Interval history: This is a very pleasant 83-year-old patient who follows with Dr. Vlad Zuñiga. Patient's home visit field care manager is Dr. EARLINE Bragg chronic stable medical conditions include congestive heart failure, diabetes, hypertension, hyperlipidemia, hypothyroid. Patient's chronic lower extremity ulcers and the son does dressing changes every week including visiting nurse. Patient only uses a walker to get about. Lives with his . Around 4:00 this morning developed central chest pain. Unable to do find a tender pain. Pain lasted for a few hours. There is no dizziness no lightheadedness no nausea vomiting. No perspiration. Patient went down to [facility]. EKG there showed the patient atrial flutter with intraventricular block. Patient was transferred here for cardiology evaluation. Patient's son at the bedside. Currently patient is chest pain-free. Patient has known coronary artery disease with stents last one being 2015. Patient not the best of historians Today-. Pressures running low. Amlodipine will was being discontinued by cardiology. Dose of Cozaar is being cut back. Overall patient is feeling better. No further chest pain. Review of systems: Was done for constitutional, cardiovascular, GI, pulmonary. relevant finding as above Physical examination: VITAL SIGNS: 97.6, 59, 17, 84 x 55, 96% room air GENERAL: Sitting up eating his meal. EYES: Pupils equal. Conjunctiva normal. HEENT: External appearance of nose and ears normal, oral cavity grossly normal, decreased hearing. NECK: JVD not raised; masses not palpable. HEART: Heart sounds irregular; edema unable to assess. LUNGS: Respiratory rate normal; decreased breath sounds. ABDOMEN: Soft, nontender, liver spleen not palpable, no masses palpable. PSYCH: [Patient able also simple questions but forgetful l. INVESTIGATIONS, reviewed in the clinical context: White count 6.1 hemoglobin 10.1 platelets 64 creatinine 0.82 2-D echo shows EF of 40-45% and wall motion abnormalities, evidence of T aVR Labs from [facility]: White count 6.3 hemoglobin 9.1 platelets 59 pro time 19.3 bun 30 creatinine 1 sodium 143 potassium 3.5 magnesium 1.1 troponin 0.04 Chest x-ray reported mild cardiomegaly and no pacemaker EKG tracing personally reviewed by me shows atrial flutter Assessment: -Unstable angina in a patient with known coronary artery disease -Coronary artery disease with prior stent -Chronic congestive heart failure from systolic dysfunction EF 40-45% from underlying coronary artery disease -Diabetes mellitus type 2 on oral hypoglycemic, uncontrolled with hypoglycemia -Hyperlipidemia -Essential hypertension -Hypothyroid -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 Mayda was contacted dose. We watch the patient for 24 last hours to keep eye on his blood pressure. Hoping to be discharged by tomorrow
[2019-01-20] MEDS: ATENOLOL 50 MG TAB PO SCH ×2 (02:54→09:31)
[2019-01-20 06:05] LABS: Glucose,Whole Blood 57 mg/dL (75-99)
[2019-01-20 06:26] LABS: Glucose,Whole Blood 59 mg/dL (75-99)
[2019-01-20] MEDS: LEVOTHYROXINE 75 MCG TAB PO SCH (06:28)
[2019-01-20] MEDS: INSULIN ASPART (NovoLOG) 100 UNIT/ML VIAL SQ SCH ×2 (06:29→12:33)
[2019-01-20 06:57] LABS: Glucose,Whole Blood 83 mg/dL (75-99)
[2019-01-20] MEDS ORDERED: LOSARTAN 25 MG TAB PO SCH (09:00)
[2019-01-20] MEDS: APIXABAN 5 MG TAB PO SCH (09:31)
[2019-01-20] MEDS: LORATADINE 10 MG TAB PO SCH (09:31)
[2019-01-20] MEDS: FERROUS SULFATE 325 MG TAB PO SCH (09:31)
[2019-01-20] MEDS: MONTELUKAST 10 MG TAB PO SCH (09:31)
[2019-01-20] MEDS: metFORMIN 850 MG TAB PO SCH (09:32)
[2019-01-20] MEDS: MAGNESIUM OXIDE 400 MG TAB PO SCH (09:32)
[2019-01-20] MEDS: GLIMEPIRIDE 2 MG TAB PO SCH (09:32)
[2019-01-20] MEDS: ASCORBIC ACID 500 MG TAB PO SCH (09:32)
[2019-01-20] MEDS: FUROSEMIDE 20 MG TAB PO SCH (09:32)
[2019-01-20] MEDS: ISOSORBIDE MONONITRATE ER 30 MG TAB.ER.24H PO SCH (09:32)
[2019-01-20] MEDS: ASPIRIN 81 MG PO SCH (09:32)
[2019-01-20 11:59] LABS: Glucose,Whole Blood 155 mg/dL (75-99)
[2019-01-20 12:25] VITALS: BP 94/50; PULSE 60; TEMP 97.6
--- NOTE | 2019-01-20 15:10 | P.PN ---
Subjective Progress Note Date: 01/20/19 This is an 83-year-old gentleman who follows with Dr. Aditya Bragg in the office. He has a known history of diabetes, hypertension, hyperlipidemia, sleep apnea, chronic atrial fibrillation for which the patient is on anticoagulation, hypothyroidism coronary artery disease with history of prior PCI to the RCA, most recently in 2016 patient underwent angioplasty and stenting of the circumflex artery. She presented to the hospital with symptoms of chest discomfort, according to the patient lasted several hours, he initially presented to [facility], and was transferred here for further cardiac care. It was noted to [facility] that his magnesium level was low, he was in atrial fibrillation. White blood cell count 6.3, hemoglobin 9.1, platelet count 59, sodium 143, potassium is 3.5, magnesium 1.1 troponin 0.04 chest x-ray showed mild cardiomegaly with possible small right-sided pleural effusion. EKG shows paced rhythm with underlying atrial fibrillation. I pressure here 112/60 with a heart rate in the 60s, 97% on room air. White blood cell count 8.2 , hgb9.3, plt 66, Na 140, Potassium 3.3, BUN 35, creat 0.88, Mag 1.8, Trop .043, .044. At the time of my examination this morning, patient is currently chest pain-free. 01/19/2019 Patient seen and examined this morning, denied any further episodes of chest discomfort, sitting up in the chair at bedside at the time of my examination. and son are present. Echocardiogram with Doppler study was performed which revealed an ejection fraction of 40-45%, basal inferior septal wall motion hypokinesia as well as apical inferior hypokinesia noted. Blood pressure 84/50 with a heart rate in the 50s. We will discontinue the Norvasc and decrease the Cozaar to 25 mg daily. From our perspective he may be able to be discharged once cleared by primary. 01/20/2019 Patient seen and examined this morning, no further episodes of chest discomfort. Hemodynamically he is stable. Okay for discharge home today from our perspective. Objective - Vital Signs Vital signs: Vital Signs Temp 97.6 F 01/20/19 11:20 Pulse 60 01/20/19 11:20 Resp 18 01/20/19 11:20 BP 94/50 01/20/19 11:20 Pulse Ox 99 01/20/19 11:20 Intake & Output 01/19/19 01/20/19 01/20/19 18:59 06:59 18:59 Intake Total 1280 580 Balance 1280 580 Weight 72.3 kg Intake: IV 20 Invasive Line 1 20 Oral 1260 580 Other: Voiding Method Toilet Toilet Diaper Diaper # Voids 1 1 # Bowel Movements 1 - Exam PHYSICAL EXAMINATION: GENERAL: 83-year-old gentleman in no acute distress at the time of my examination HEENT: Head is atraumatic, normocephalic. Pupils equal, round. Sclera anicteric. Conjunctiva are clear. Mucous membranes of the mouth are moist. Neck is supple. There is no elevated jugular venous pressure. No carotid bruit is heard. HEART EXAMINATION: S1 and S2 irregularly irregular a systolic murmur is heard CHEST EXAMINATION: Lungs reveal diminished air entry to bilateral bases. ABDOMEN: Soft, nontender. Bowel sounds are heard. No organomegaly noted. EXTREMITIES: 2+ peripheral pulses with no evidence of peripheral edema and no calf tenderness noted. NEUROLOGIC patient is awake, alert and oriented 3 . - Labs CBC & Chem 7: 01/19/19 06:33 01/19/19 06:33 Labs: Abnormal Lab Results - Last 24 Hours (Table) 01/19/19 01/19/19 01/20/19 Range/Units 16:34 20:55 06:04 POC Glucose (mg/dL) 156 H 109 H 57 L (75-99) mg/dL 01/20/19 01/20/19 Range/Units 06:25 11:55 POC Glucose (mg/dL) 59 L 155 H (75-99) mg/dL Assessment and Plan Plan: Assessment and plan #1 chest pain, atypical for acute coronary syndrome, cannot completely rule out acute coronary syndrome. Troponins 0.043, 0.044. EKG shows a paced rhythm with underlying atrial fibrillation. #2 hypomagnesemia #3 chronic A. fib, on anticoagulation in the form of Eliquis #4 diabetes #5 hypertension #6 hyperlipidemia #7 sleep apnea #8sick sinus syndrome status post permanent pacemaker #9 coronary artery disease with prior PCI #10-hypokalemia 11 Anemia and low platelets Plan From cardiology's perspective, patient may be able to be discharged home today. We will make a follow-up appointment in the office post discharge. DNP note has been reviewed, I agree with a documented findings and plan of care. Patient was seen and examined.
== END 2019-01-20 14:00 | disposition home or self-care (01) | DRG 303 ==
LOC: EC 11:26 → 3SCARD 12:47
PROVIDERS: ADMIT Hospitalist; ATTEND Hospitalist
DX: I25.110 Atherosclerotic heart disease of native coronary artery with unstable angina pectoris (principal); I48.1 Persistent atrial fibrillation; I48.92 Unspecified atrial flutter; I50.22 Chronic systolic (congestive) heart failure; L97.919 Non-pressure chronic ulcer of unspecified part of right lower leg with unspecified severity; L97.929 Non-pressure chronic ulcer of unspecified part of left lower leg with unspecified severity; D64.9 Anemia, unspecified; D69.6 Thrombocytopenia, unspecified; E03.9 Hypothyroidism, unspecified; E11.649 Type 2 diabetes mellitus with hypoglycemia without coma; E78.5 Hyperlipidemia, unspecified; E83.42 Hypomagnesemia; E87.6 Hypokalemia; G47.33 Obstructive sleep apnea (adult) (pediatric); H54.7 Unspecified visual loss; H91.90 Unspecified hearing loss, unspecified ear; I11.0 Hypertensive heart disease with heart failure; I45.4 Nonspecific intraventricular block; I95.2 Hypotension due to drugs; Z79.01 Long term (current) use of anticoagulants; Z79.02 Long term (current) use of antithrombotics/antiplatelets; Z79.82 Long term (current) use of aspirin; Z79.84 Long term (current) use of oral hypoglycemic drugs; Z79.890 Hormone replacement therapy; Z79.899 Other long term (current) drug therapy; Z82.49 Family history of ischemic heart disease and other diseases of the circulatory system; Z83.3 Family history of diabetes mellitus; Z87.891 Personal history of nicotine dependence; Z95.0 Presence of cardiac pacemaker; Z95.2 Presence of prosthetic heart valve; Z95.5 Presence of coronary angioplasty implant and graft; Z90.49 Acquired absence of other specified parts of digestive tract; H26.9 Unspecified cataract
CPT/HCPCS: 80048; 80061; 82728; 83036; 83540; 83550; 83735; 84484; 85025; 85027; 93005; 93306; 99285